=== PATIENT | female | born 1980 | race American Indian/Alaskan Native ===

== ENCOUNTER 2017-07-07 16:06 | Outpatient (CLI) | payer MEDICAID | END 2017-07-07 16:21 | disposition home or self-care (01) | LOC: LAB 16:06 → TRG 18:08 | PROVIDERS: ATTEND Obstetrics & Gynecology | DX: O09.523 Supervision of elderly multigravida, third trimester (principal); O36.0130 Maternal care for anti-D [Rh] antibodies, third trimester, not applicable or unspecified; Z3A.34 34 weeks gestation of pregnancy | CPT/HCPCS: 85461; 86850; 86900; 86901; 96372; J2790 ==

== ENCOUNTER 2017-07-31 10:10 | Outpatient (CLI) | payer MEDICAID ==
[2017-07-31 10:29] VITALS: BP 136/73
== END 2017-07-31 11:15 | disposition home or self-care (01) ==
LOC: TRG 10:10
PROVIDERS: ATTEND Obstetrics & Gynecology
DX: O09.523 Supervision of elderly multigravida, third trimester (principal); O47.1 False labor at or after 37 completed weeks of gestation; Z3A.39 39 weeks gestation of pregnancy
CPT/HCPCS: 59025

== ENCOUNTER 2017-07-31 21:42 | Inpatient (IN) | payer MEDICAID ==
[2017-07-31] MEDS ORDERED: XYLOCAINE 2% INFILTRATI ONE (22:36)
[2017-07-31] MEDS ORDERED: ePHEDrine SULFATE IV PRN (22:36)
[2017-07-31] MEDS ORDERED: BRETHINE IVP PRN (22:36)
[2017-07-31] MEDS ORDERED: BRETHINE SUB-Q PRN (22:36)
[2017-07-31] MEDS ORDERED: MINERAL OIL PO PRN (22:36)
[2017-07-31] MEDS ORDERED: SUBLIMAZE IV ONE (22:57)
--- NOTE | 2017-07-31 22:57 | History and Physical Report ---
History of Present Illness Date of examination: 07/31/17 Date of admission: 07/31/17 21:59 Chief complaint: contractions History of present illness: 37y/o @ 39+2 weeks presents in active labor with advanced cervical dilation. The patient initiated care @ 28 weeks ega. Her course is also complicated by advanced maternal age. She denied leakage of fluid at presentation. GBS negative. 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 Social history: - Obstetrical History Expected Date of Delivery: 08/05/17 Actual Gestation: 39 Week(s) 2 Day(s) : 7 Para: 4 Hx # Term Pregnancies: 4 Number of Pregnancies: 0 Spontaneous Abortions: 2 Induced : 0 Number of Living Children: 4 Medications and Allergies Allergies Allergy/AdvReac Type Severity Reaction Status Date / Time No Known Allergies Allergy Verified 07/31/17 10:12 Home Medications Medication Instructions Recorded Confirmed Last Taken Type No Known Home Medications [No 07/31/17 07/31/17 Unknown History Reported Home Medications] Active Meds: Active Medications Ephedrine Sulfate (Ephedrine Sulfate) 10 mg IV Q2M PRN PRN Reason: Hypotension Lactated Ringer's (Lactated Ringers) 1,000 mls @ 125 mls/hr IV DIRECT DINORAH Oxytocin/Sodium Chloride (Pitocin/Ns 20 Unit/1000ml Drip) 20 units in 1,000 mls @ 125 mls/hr IV DIRECT DINORAH Oxytocin/Sodium Chloride (Pitocin/Ns 30 Unit/500ml) 30 units in 500 mls @ 1 mls /hr IV TITR DINORAH; 1 MILLIUNITS/MIN PRN Reason: Protocol Lidocaine (Xylocaine 2%) 20 ml INFILTRATI ONCE ONE Stop: 07/31/17 22:37 Mineral Oil (Mineral Oil) 30 ml PO QHS PRN PRN Reason: Constipation Terbutaline Sulfate (Brethine) 0.25 mg SUB-Q ONCE PRN PRN Reason: Hyperstimulation/Hypertonicity Terbutaline Sulfate (Brethine) 0.25 mg IVP ONCE PRN PRN Reason: Hyperstimulation/Hypertonicity Review of Systems All systems: negative Genitourinary: contractions, no leakage of fluid - Vital Signs Vital signs: Vital Signs Pulse Pulse Ox 83 100 07/31/17 22:44 07/31/17 22:44 Temp Pulse Resp BP Pulse Ox 97.7 F 41 L 20 134/83 83 L 07/31/17 22:47 07/31/17 22:54 07/31/17 22:47 07/31/17 22:47 07/31/17 22:54 - Physical Exam Breasts: Positive: deferred Cardiovascular: Regular rate Lungs: Positive: Clear to auscultation Abdomen: Positive: normal appearance Genitourinary (Female): Positive: normal external genitalia Results All other labs normal. Assessment and Plan - Patient Problems (1) Active labor at term Current Visit: Yes Status: Acute Plan to address problem: admit to L&D (2) Advanced maternal age (AMA) in Current Visit: Yes Status: Acute
[2017-07-31] MEDS ORDERED: PITOCin/NS 30 UNIT/500ML 30 UNITS/500 ML BAG IV SCH (23:00)
[2017-07-31] MEDS ORDERED: LACTATED RINGERS 1,000 ML IV SCH (23:00)
[2017-07-31] MEDS ORDERED: PITOCin/NS 20 UNIT/1000ML DRIP 20,000 MILLIUNITS/1,000 ML BAG IV ONE (23:01)
[2017-07-31] MEDS ORDERED: TYLENOL PO PRN (23:02)
[2017-07-31] MEDS ORDERED: MILK OF MAGNESIA PO PRN (23:02)
[2017-07-31] MEDS ORDERED: LANSINOH TP PRN (23:02)
[2017-07-31] MEDS ORDERED: PHENERGAN PR PRN (23:02)
[2017-07-31] MEDS ORDERED: DULCOLAX PR PRN (23:02)
[2017-07-31] MEDS ORDERED: PHENERGAN PO PRN (23:02)
[2017-07-31] MEDS ORDERED: ZOFRAN IV PRN (23:02)
[2017-07-31] MEDS ORDERED: NORCO 5/325 PO PRN (23:02)
[2017-07-31] MEDS ORDERED: BENADRYL PO PRN (23:02)
[2017-07-31] MEDS ORDERED: TUCKS PAD TP PRN (23:02)
--- NOTE | 2017-07-31 23:04 | Procedure Note ---
OB Delivery Note - Delivery Date of Delivery: 08/01/17 Surgeon: NELIA SHARIF Estimated blood loss: 100cc - Vaginal Delivery presentation: vertex Delivery position: OA Intrapartum events: none Delivery augmentation: rupture of membranes Delivery monitor: external FHT Route of delivery: Delivery placenta: spontaneous Delivery cord: nuchal cord, 3 umbilical vessels Episiotomy: none Delivery laceration: 1st degree Anesthesia: none Delivery comments: Patient progressed to C/C/+1 and pushed to deliver a liveborn male with apgars of 8/9 and weight of 7lbs 7oz. After delivery of the head, a tight nuchal cord was surgically reduced. The shoulders delivered easily. The infant was placed on the warmer and bulb suctioned. The placenta delivered spontaneously intact with 3VC. The patient sustained a midline first degree laceration left unrepaired. EBL 100ml. - Infant A at 1 minute: 8 at 5 minutes: 9 Infant Gender: Male (weight 7lbs 7oz)
[2017-07-31 23:36] LABS: Hematocrit 38.2 % (30.3-42.9); Hemoglobin 12.6 gm/dl (10.1-14.3); Mean Corpuscular HGB Conc 33 % (30-34); Mean Corpuscular Volume 77 fl (79-97); Platelet Count 219 K/mm3 (140-440); Red Cell Distribution Width 15.4 % (13.2-15.2)
[2017-07-31 23:41] LABS: Mean Corpuscular Hemoglobin 25 pg (28-32)
[2017-07-31] MEDS ORDERED: SODIUM CHLORIDE FLUSH SYRINGE 10 ML IV NR (23:45)
[2017-08-01] MEDS: PITOCin/NS 20 UNIT/1000ML DRIP 20 UNITS/1,000 ML BAG IV SCH ×2 (00:37→03:58)
[2017-08-01] MEDS: MOTRIN PO SCH ×4 (04:11→23:25)
[2017-08-01 10:51] LABS: Hematocrit 35.5 % (30.3-42.9); Hemoglobin 11.6 gm/dl (10.1-14.3)
--- NOTE | 2017-08-01 12:47 | Progress Note ---
Assessment and Plan - Patient Problems (1) Active labor at term Current Visit: Yes Status: Acute Plan to address problem: Patient is doing well Discharge home tomorrow (2) Advanced maternal age (AMA) in Current Visit: Yes Status: Acute Subjective - Subjective Date of service: 08/01/17 Interval history: The patient is without any significant complaints. She reports minor uterine cramping. She states her lochia has decreased. She is tolerating a regular diet. Patient reports: appetite normal, voiding normally, pain well controlled [place]: doing well Objective - Vital Signs Latest vital signs: Vital Signs Temp Pulse Resp BP BP Pulse Ox 08/01/17 08:04 98.2 F 75 16 121/68 96 08/01/17 04:25 98.4 F 93 H 20 123/69 08/01/17 02:15 98.3 F 76 20 134/74 08/01/17 01:36 75 134/74 08/01/17 01:35 84 98 08/01/17 01:30 92 H 99 08/01/17 01:25 79 99 08/01/17 01:22 88 137/62 08/01/17 01:20 89 99 08/01/17 01:15 81 98 08/01/17 01:10 85 99 08/01/17 01:06 86 145/75 08/01/17 01:05 95 H 99 08/01/17 01:00 95 H 100 08/01/17 00:55 84 100 08/01/17 00:51 90 138/70 08/01/17 00:50 92 H 99 08/01/17 00:45 92 H 99 08/01/17 00:40 93 H 98 08/01/17 00:35 105 H 99 08/01/17 00:33 107 H 88 08/01/17 00:30 95 H 100 08/01/17 00:25 98 H 100 08/01/17 00:21 86 92 08/01/17 00:20 112 H 98 08/01/17 00:15 75 99 08/01/17 00:10 74 99 08/01/17 00:05 97 H 96 08/01/17 00:03 103 H 77 L 08/01/17 00:00 109 H 100 07/31/17 23:58 92 H 70 L 07/31/17 23:55 98 H 100 07/31/17 23:50 93 H 100 07/31/17 23:45 94 H 100 07/31/17 23:40 99 H 98 07/31/17 23:35 92 H 98 07/31/17 23:30 83 98 07/31/17 23:24 80 100 07/31/17 23:19 83 98 07/31/17 23:18 89 88 07/31/17 23:14 88 99 07/31/17 23:09 84 98 07/31/17 23:07 89 90 07/31/17 23:04 82 100 07/31/17 22:59 78 100 07/31/17 22:54 41 L 83 L 07/31/17 22:49 85 100 07/31/17 22:47 97.7 F 81 20 134/83 07/31/17 22:44 83 100 Intake and Output 07/31/17 08/01/17 08/01/17 22:59 06:59 14:59 Intake Total 618.75 220 Output Total 400 Balance 218.75 220 Intake: IV 418.75 PITOCin/NS 20 UNIT/1000ML 418.75 DRIP 20 units In 1,000 ml @ 125 mls/hr IV DIRECT DINORAH Rx#:[id number] Oral 200 220 Output: Urine 400 Void 400 Other: Total, Intake Amount 200 220 Total, Output Amount 400 # Voids Void 1 Weight 107.501 kg 107.501 kg Estimated Blood Loss 100 Patient Weight 08/02/17 06:59 Weight 107.501 kg - Exam Uterus: Present: normal, firm - Labs Labs: Abnormal lab results 07/31/17 Range/Units 22:20 WBC 13.8 H (4.5-11.0) K/mm3 MCV 77 L (79-97) fl MCH 25 L (28-32) pg RDW 15.4 H (13.2-15.2) %
--- NOTE | 2017-08-01 12:48 | Discharge Summary ---
Providers - Providers Date of Admission: 07/31/17 21:59 Date of discharge: 08/02/17 Attending physician: NELIA SHARIF Primary care physician: NELIA SHARIF Hospitalization Reason for admission: active labor Delivery: Laceration: 1st degree Discharge diagnosis: IUP at term delivered [place] baby: male Hospital course: The patient presented to labor and delivery in active labor with advanced cervical dilatation. She had a normal spontaneous vaginal delivery. course was uncomplicated. Condition at discharge: Good Disposition: DC-01 TO HOME OR SELFCARE - Discharge Diagnoses (1) Active labor at term Status: Acute (2) Advanced maternal age (AMA) in Status: Acute Plan - Discharge Medications Prescriptions: HYDROcodone/APAP 5-325 [[place] 5/325] 1 each PO Q6HR PRN #30 tablet PRN Reason: Pain Ibuprofen [Motrin] 800 mg PO Q8HR PRN #60 tablet PRN Reason: Pain - Provider Discharge Summary Activity: no sex for 6 weeks, no heavy lifting 4 weeks, no strenuous exercise Diet: routine Instructions: routine Additional instructions: [] Smoking cessation referral if applicable(refer to patient education folder for contact #) [] Refer to [facility] Booklet Call your doctor immediately for: * Fever > 100.5 * Heavy vaginal bleeding ( >1 pad per hour) * Severe persistent headache * Shortness of breath * Reddened, hot, painful area to leg or breast * Follow-up in 4 weeks for visit - Follow up plan
[2017-08-02] MEDS: MOTRIN PO SCH ×3 (05:21→17:31)
[2017-08-02 17:59] VITALS: BP 123/63
== END 2017-08-02 17:50 | disposition home or self-care (01) | DRG 775 ==
LOC: TRG 21:42 → OBSVTOIN 21:59 → LD 21:59 → TRG 21:59 → OB 08-01 02:13
PROVIDERS: ADMIT Obstetrics & Gynecology; ATTEND Obstetrics & Gynecology
PROC: 10E0XZZ Delivery of Products of Conception, External Approach (ICD-10-PCS; principal; 2017-08-01)
DX: O69.81X0 Labor and delivery complicated by cord around neck, without compression, not applicable or unspecified (principal); O62.0 Primary inadequate contractions; O70.0 First degree perineal laceration during delivery; Z3A.39 39 weeks gestation of pregnancy; Z37.0 Single live birth
CPT/HCPCS: 36415; 85014; 85018; 85027; 86592; 86706; 86850; 86870; 86900; 86901; 99211; A6250; G0463; J2590; J3010

== ENCOUNTER 2018-12-06 07:40 | Outpatient (CLI) | payer OTHER ==
[2018-12-06] MEDS ORDERED: BRETHINE ONE (07:47)
[2018-12-06] MEDS ORDERED: LACTATED RINGERS 1,000 ML ONE (07:47)
[2018-12-06] MEDS ORDERED: BICITRA ONE (07:50)
[2018-12-06] MEDS ORDERED: PEPCID IV ONE (07:51)
[2018-12-06] MEDS ORDERED: REGLAN ONE (07:51)
[2018-12-06 08:06] VITALS: BP 142/72
[2018-12-06 08:50] LABS: Hematocrit 35.8 % (30.3-42.9); Hemoglobin 12.1 gm/dl (10.1-14.3); Mean Corpuscular HGB Conc 34 % (30-34); Mean Corpuscular Volume 77 fl (79-97); Platelet Count 246 K/mm3 (140-440); Red Blood Count 4.67 M/mm3 (3.65-5.03); Red Cell Distribution Width 14.4 % (13.2-15.2)
[2018-12-06] MEDS ORDERED: STADOL IV ONE (09:30)
[2018-12-06] MEDS ORDERED: D5LR 1,000 ML IV ONE (09:49)
--- NOTE | 2018-12-06 12:16 | History and Physical Report ---
History of Present Illness Date of examination: 12/06/18 Date of admission: 12/06/2018 Chief complaint: breech presentation History of present illness: 38y/o @ 38+6 weeks presents for an external cephalic version secondary to fetus being in breech presentation. The patient denies any regular uterine contractions vaginal bleeding or leakage of fluid. Her course is complicated by advanced maternal age, multiparity, and unstable lie. Past History Past Medical History: other (breast mass) Past Surgical History: no surgical history Social history: - Obstetrical History Expected Date of Delivery: 12/14/18 Actual Gestation: 38 Week(s) 6 Day(s) : 8 Para: 5 Hx # Term Pregnancies: 5 Number of Pregnancies: 0 Spontaneous Abortions: 2 Induced : 0 Number of Living Children: 5 Medications and Allergies Allergies Allergy/AdvReac Type Severity Reaction Status Date / Time No Known Allergies Allergy Verified 07/31/17 10:12 Home Medications Medication Instructions Recorded Confirmed Last Taken Type HYDROcodone/APAP 5-325 [[place] 1 each PO Q6HR PRN #30 tablet 08/01/17 12/06/18 Unknown Rx 5/325] Ibuprofen [Motrin] 800 mg PO Q8HR PRN #60 tablet 08/01/17 12/06/18 Unknown Rx Review of Systems All systems: negative - Vital Signs Vital signs: Vital Signs Pulse BP 90 142/72 12/06/18 08:05 12/06/18 08:05 Temp Pulse Resp BP Pulse Ox 97.6 F 103 H 14 142/72 99 12/06/18 08:24 12/06/18 12:08 12/06/18 08:24 12/06/18 08:05 12/06/18 12:08 - Physical Exam Breasts: Positive: deferred Cardiovascular: Regular rate Lungs: Positive: Clear to auscultation Results Result Diagrams: 12/06/18 08:10 Abnormal lab results 12/06/18 Range/Units 08:10 MCV 77 L (79-97) fl MCH 26 L (28-32) pg All other labs normal. Assessment and Plan - Patient Problems (1) Breech presentation of fetus Current Visit: Yes Status: Acute Plan to address problem: Admit for external cephalic version (2) Advanced maternal age (AMA) in Current Visit: No Status: Acute
--- NOTE | 2018-12-06 21:15 | Operative Report ---
Operative Report Operative Report: Date: 12/06/2018 Preoperative diagnosis: Breech presentation
== END 2018-12-06 14:15 | disposition home or self-care (01) ==
LOC: TRG 07:40 → LD 07:42 → TRG 14:15
PROVIDERS: ATTEND Obstetrics & Gynecology
DX: O32.1XX0 Maternal care for breech presentation, not applicable or unspecified (principal); O47.03 False labor before 37 completed weeks of gestation, third trimester; O09.523 Supervision of elderly multigravida, third trimester; Z3A.38 38 weeks gestation of pregnancy
CPT/HCPCS: 36415; 59025; 85027; 86850; 86900; 86901; 96365; 96375; J0595; J3105; J7120; J7121; 96361; J2765

== ENCOUNTER 2018-12-22 20:57 | Inpatient (IN) | payer OTHER ==
[2018-12-22] MEDS ORDERED: BRETHINE SUB-Q PRN (23:45)
[2018-12-22] MEDS ORDERED: PHENERGAN PR PRN (23:45)
[2018-12-22] MEDS ORDERED: PITOCin/NS 30 UNIT/500ML 30 UNITS/500 ML BAG IV SCH (23:45)
[2018-12-22] MEDS ORDERED: PITOCin/NS 20 UNIT/1000ML DRIP 20 UNITS/1,000 ML BAG IV SCH (23:45)
[2018-12-22] MEDS ORDERED: CERVIDIL VG ONE (23:45)
[2018-12-22] MEDS ORDERED: NARCAN 0.4 MG/1 ML IV PRN (23:45)
[2018-12-22] MEDS ORDERED: STADOL IV PRN (23:45)
[2018-12-22] MEDS ORDERED: LACTATED RINGERS 1,000 ML IV SCH (23:45)
[2018-12-22] MEDS ORDERED: SUBLIMAZE IV PRN (23:45)
[2018-12-22] MEDS ORDERED: ZOFRAN IV PRN (23:45)
[2018-12-22] MEDS ORDERED: XYLOCAINE 2% INFILTRATI ONE (23:45)
[2018-12-22] MEDS ORDERED: MINERAL OIL PO PRN (23:45)
[2018-12-22] MEDS ORDERED: BRETHINE IVP PRN (23:45)
--- NOTE | 2018-12-22 23:51 | History and Physical Report ---
History of Present Illness Date of examination: 12/22/18 Date of admission: 12/22/18 21:03 Chief complaint: IOL for post dates History of present illness: This is a 38 yo at 41 weeks here for IOL for post dates. She reports no medical problems in this besides the breech and had endured a version in this . She is a patient of [facility]. She is GBS neg Past History Past Medical History: no pertinent history Past Surgical History: no surgical history Family/Genetic History: none Social history: . denies: smoking, alcohol abuse, prescription drug abuse - Obstetrical History : 8 Medications and Allergies Allergies Allergy/AdvReac Type Severity Reaction Status Date / Time No Known Allergies Allergy Verified 07/31/17 10:12 Home Medications Medication Instructions Recorded Confirmed Last Taken Type HYDROcodone/APAP 5-325 [[place] 1 each PO Q6HR PRN #30 tablet 08/01/17 12/06/18 Unknown Rx 5/325] Ibuprofen [Motrin] 800 mg PO Q8HR PRN #60 tablet 08/01/17 12/06/18 Unknown Rx Review of Systems All systems: negative - Vital Signs Vital signs: Vital Signs Pulse BP 84 129/69 12/22/18 21:51 12/22/18 21:51 Temp Pulse Resp BP Pulse Ox 97.5 F L 83 18 137/82 12/22/18 22:08 12/22/18 23:08 12/22/18 22:08 12/22/18 23:08 - Physical Exam Breasts: Positive: normal Cardiovascular: Regular rate, Normal S1 Lungs: Positive: Clear to auscultation, Normal air movement Abdomen: Positive: normal appearance, soft, normal bowel sounds. Negative: distention, tenderness, guarding Genitourinary (Female): Positive: normal external genitalia, normal perenium Vagina: Positive: normal moisture Uterus: Positive: normal size Anus/Rectum: Positive: normal perianal skin Extremities: Positive: normal Deep Tendon Reflex Grade: Normal +2 - Obstetrical FHR: category 1 Cervical Dilatation: 1 Cervical Effacement Percentage: 50 station: -3 Uterine Tone Measurement Phase: Resting Results All other labs normal. Assessment and Plan A/P IUP 41 weeks IOL for post dates GBS neg start with cervidil expect vaginal delivery
[2018-12-23 00:47] LABS: Hematocrit 33.4 % (30.3-42.9); Hemoglobin 11.2 gm/dl (10.1-14.3); Mean Corpuscular HGB Conc 34 % (30-34); Mean Corpuscular Volume 76 fl (79-97); Platelet Count 256 K/mm3 (140-440); Red Blood Count 4.39 M/mm3 (3.65-5.03); Red Cell Distribution Width 14.7 % (13.2-15.2)
--- NOTE | 2018-12-23 10:20 | Progress Note ---
Assessment and Plan A/P IUP 41 weeks IOL for post dates GBS neg s/p cervidil will proceed with pitocin this am with expectation of vaginal delivery Subjective - Subjective Date of service: 12/23/18 Principal diagnosis: ILO for post dates Interval history: This is a 38 yo at 41 weeks here for IOL for post dates. She reports no medical problems in this besides the breech and had endured a version in this . She is a patient of [facility]. She is GBS neg Patient reports: movement normal, contractions, no new complaints, no loss of fluid, no vaginal bleeding Objective - Vital Signs Vital Signs: Vital Signs - 12hr 12/22/18 12/23/18 12/23/18 23:08 00:08 00:53 Temperature Pulse Rate 83 74 68 Blood Pressure 137/82 130/76 121/78 12/23/18 12/23/18 12/23/18 01:08 02:08 03:08 Temperature Pulse Rate 72 74 75 Blood Pressure 128/79 123/77 115/67 12/23/18 12/23/18 12/23/18 04:08 05:08 06:08 Temperature Pulse Rate 72 84 75 Blood Pressure 108/66 113/74 118/70 12/23/18 12/23/18 07:09 07:12 Temperature 98.2 F Pulse Rate 73 Blood Pressure 118/73 - Exam Breasts: normal Cardiovascular: Regular rate, Normal S1 Lungs: Clear to auscultation, Normal air movement Abdomen: Present: normal appearance, soft, normal bowel sounds. Absent: distention, tenderness, guarding Uterus: Present: normal, firm, fundal height above umbilicus. Absent: bogginess, tenderness FHR: category 1 Cervical Dilatation: 4 Cervical Effacement Percentage: 80 station: -2 Uterine Contraction Pattern: Regular Uterine Tone Measurement Phase: Contraction Uterine Contraction Intensity: Mild Extremities: normal Deep Tendon Reflex Grade: Normal +2 - Labs Labs: Abnormal Labs 12/23/18 00:11 WBC 11.8 H MCV 76 L MCH 26 L Laboratory Results - last 24 hr 12/23/18 12/23/18 00:11 00:16 WBC 11.8 H RBC 4.39 Hgb 11.2 Hct 33.4 MCV 76 L MCH 26 L MCHC 34 RDW 14.7 Plt Count 256 Blood Type B NEGATIVE Antibody Screen Negative
[2018-12-23] MEDS ORDERED: CYTOTEC ONE (14:11)
[2018-12-23] MEDS ORDERED: MILK OF MAGNESIA PO PRN (14:15)
[2018-12-23] MEDS ORDERED: BENADRYL PO PRN (14:15)
[2018-12-23] MEDS ORDERED: LANSINOH TP PRN (14:15)
[2018-12-23] MEDS ORDERED: NORCO 5/325 PO PRN (14:15)
[2018-12-23] MEDS ORDERED: ANUCORT-HC PR PRN (14:15)
[2018-12-23] MEDS ORDERED: TYLENOL PO PRN (14:15)
[2018-12-23] MEDS ORDERED: TUCKS PAD TP PRN (14:15)
[2018-12-23] MEDS ORDERED: PHENERGAN PR PRN (14:15)
[2018-12-23] MEDS ORDERED: DULCOLAX PR PRN (14:15)
[2018-12-23] MEDS ORDERED: ZOFRAN IV PRN (14:15)
[2018-12-23] MEDS ORDERED: PERCOCET 5/325 PO PRN (14:15)
[2018-12-23] MEDS ORDERED: TORADOL IV PRN (14:15)
[2018-12-23] MEDS ORDERED: PHENERGAN PO PRN (14:15)
--- NOTE | 2018-12-23 14:20 | Procedure Note ---
OB Delivery Note - Delivery Date of Delivery: 12/23/18 Surgeon: MARK FOURNIER Estimated blood loss: other (150cc) - Vaginal Delivery presentation: vertex Delivery position: OA Delivery induction: oxytocin Delivery monitor: external FHT, external uterine Route of delivery: Delivery placenta: spontaneous Delivery cord: 3 umbilical vessels Episiotomy: none Delivery laceration: none Anesthesia: none Delivery comments: Patient was noted to be c/c +1 and commenced to pushing a viable female at 1402. The nasopharynx and oropharynx suctioned. The cord was clamped and cut and placed on mom chest. The Apgars noted at 8 and 9. Weight of female infant 7 pounds 0 oz. Survey of perineum did not reveal any lacerations. The placenta delivered intact with three vessel cord. Bleeding was noted to be 150cc. Patient tolerated procedure well. - A at 1 minute: 8 at 5 minutes: 9 Infant Gender: Female
[2018-12-23] MEDS: IBUPROFEN PO SCH ×2 (14:55→22:54)
[2018-12-23] MEDS ORDERED: SODIUM CHLORIDE FLUSH SYRINGE 10 ML IV NR (15:00)
[2018-12-23] MEDS ORDERED: CYTOTEC PR ONE (15:00)
[2018-12-23] MEDS ORDERED: PITOCin/NS 20 UNIT/1000ML DRIP 20 UNITS/1,000 ML BAG IV SCH (15:00)
[2018-12-23] MEDS: COLACE PO SCH (22:54)
[2018-12-24 02:35] LABS: Hematocrit 32.9 % (30.3-42.9)
[2018-12-24] MEDS: SENOKOT S PO SCH (04:08)
[2018-12-24] MEDS: IBUPROFEN PO SCH ×3 (04:08→22:24)
--- NOTE | 2018-12-24 07:00 | Progress Note ---
Assessment and Plan A/P PPD 1 s/p Routine care. d/c home tomorrow rh neg will need rhogam prior to discharge Subjective - Subjective Date of service: 12/24/18 Principal diagnosis: ILO for post dates Interval history: This is a 38 yo at 41 weeks here for IOL for post dates. She reports no medical problems in this besides the breech and had endured a version in this . She is a patient of [facility]. She is GBS neg Patient reports: appetite normal, voiding normally, pain well controlled, flatus, ambulating normally [place]: doing well Objective - Vital Signs Latest vital signs: Vital Signs Temp Pulse Resp BP BP Pulse Ox 12/24/18 05:08 18 12/24/18 04:08 18 12/24/18 00:19 98.7 F 85 18 122/63 98 12/23/18 23:54 18 12/23/18 22:54 18 12/23/18 20:47 98.9 F 84 18 123/73 96 12/23/18 16:06 98 F 73 18 135/74 100 12/23/18 15:20 78 136/78 12/23/18 14:55 18 12/23/18 14:48 82 127/67 12/23/18 14:33 82 128/63 12/23/18 14:18 92 H 134/64 12/23/18 13:48 83 137/68 12/23/18 13:17 85 137/66 12/23/18 12:48 88 139/69 12/23/18 12:17 89 141/72 12/23/18 11:58 20 12/23/18 07:12 98.2 F 12/23/18 07:09 73 118/73 Intake and Output 12/23/18 12/23/18 12/24/18 15:59 23:59 07:59 Intake Total 16.667 360 240 Balance 16.667 360 240 Intake: IV 16.667 PITOCin/NS 30 UNIT/500ML 16.667 30 units In 500 ml @ 1 MILLIUNITS/MIN 1 mls/hr IV TITR DINORAH Rx#:[id number] Oral 360 Intake, Free Water 240 Other: Total, Intake Amount 360 # Voids Void 1 1 # Bowel Movements 1 Estimated Blood Loss 150 - Exam Breasts: Present: normal Cardiovascular: Present: Regular rate, Normal S1 Lungs: Present: Clear to auscultation, Normal air movement Abdomen: Present: normal appearance, soft, normal bowel sounds. Absent: distention, tenderness, guarding Vulva: both: normal Uterus: Present: normal, firm, fundal height below umbilicus. Absent: bogginess, tenderness Extremities: Present: normal Deep Tendon Reflex Grade: Normal +2 Incision: Present: normal, dry
[2018-12-24] MEDS: COLACE PO SCH ×2 (10:00→22:24)
[2018-12-24] MEDS: PRENATAL VITAMIN PO SCH (10:20)
[2018-12-24] MEDS ORDERED: M-M-R II VACCINE SUB-Q ONE (14:15)
[2018-12-24] MEDS ORDERED: BOOSTRIX IM ONE (14:15)
[2018-12-25] MEDS: SENOKOT S PO SCH (02:13)
[2018-12-25] MEDS: IBUPROFEN PO SCH ×2 (02:14→09:22)
--- NOTE | 2018-12-25 09:07 | Progress Note ---
Assessment and Plan A/P PPD 2 s/p Routine care. d/c home today rh neg will need rhogam prior to discharge Subjective - Subjective Date of service: 12/25/18 Principal diagnosis: IOL for post dates Interval history: This is a 38 yo at 41 weeks here for IOL for post dates. She reports no medical problems in this besides the breech and had endured a version in this . [facility] She is GBS neg Patient reports: appetite normal, voiding normally, pain well controlled : doing well Objective - Vital Signs Latest vital signs: Vital Signs Temp Pulse Resp BP Pulse Ox 12/25/18 03:14 18 12/25/18 02:14 18 12/25/18 00:42 98.0 F 78 20 121/73 97 12/24/18 23:24 18 12/24/18 22:24 18 12/24/18 16:10 98.7 F 81 20 124/84 99 12/24/18 13:16 98.4 F 86 20 129/68 98 Intake and Output 12/24/18 12/25/18 12/25/18 23:59 07:59 15:59 Intake Total 720 Balance 720 Intake: Oral 720 Other: Total, Intake Amount 480 # Voids Void 1 - Exam Breasts: Present: normal Cardiovascular: Present: Regular rate, Normal S1 Lungs: Present: Clear to auscultation, Normal air movement Abdomen: Present: normal appearance, soft, normal bowel sounds. Absent: distention, tenderness, guarding Vulva: both: normal Uterus: Present: normal, firm, fundal height below umbilicus. Absent: bogginess, tenderness Extremities: Present: normal Deep Tendon Reflex Grade: Normal +2 Incision: Present: normal, dry, intact
--- NOTE | 2018-12-25 09:12 | Discharge Summary ---
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 . female. Routine PP at 4 weeks . Social servic consult for homelessness Condition at discharge: Good Disposition: DC-01 TO HOME OR SELFCARE Plan - Discharge Medications Prescriptions: Ferrous Sulfate [Feosol 325 MG tab] 325 mg PO BID #30 tablet Ibuprofen [Motrin] 600 mg PO Q8H PRN #30 tablet PRN Reason: Pain oxyCODONE /ACETAMINOPHEN [Percocet 5/325] 1 tab PO Q6HR PRN #20 tablet PRN Reason: Pain - Provider Discharge Summary Additional instructions: [] Smoking cessation referral if applicable(refer to patient education folder for contact #) [] Refer to [facility] Booklet Call your doctor immediately for: * Fever > 100.5 * Heavy vaginal bleeding ( >1 pad per hour) * Severe persistent headache * Shortness of breath * Reddened, hot, painful area to leg or breast * Drainage or odor from incision. * Keep incision clean and dry at all times and follow doctor's instructions regarding bathing/showering - Follow up plan Follow up: MARK FOURNIER MD [Primary Care Provider] - 7 Days
[2018-12-25] MEDS: COLACE PO SCH (09:24)
[2018-12-25] MEDS: PRENATAL VITAMIN PO SCH (09:24)
[2018-12-25 17:18] VITALS: BP 122/87
== END 2018-12-25 18:00 | disposition home or self-care (01) | DRG 775 ==
LOC: TRG 20:57 → LD 21:03 → OB 12-23 15:42
PROVIDERS: ADMIT Obstetrics & Gynecology; ATTEND Obstetrics & Gynecology
PROC: 10E0XZZ Delivery of Products of Conception, External Approach (ICD-10-PCS; principal; 2018-12-23)
PROC: 3E033VJ Introduction of Other Hormone into Peripheral Vein, Percutaneous Approach (ICD-10-PCS; 2018-12-23)
DX: O48.0 Post-term pregnancy (principal); Z3A.41 41 weeks gestation of pregnancy; Z37.0 Single live birth; O26.893 Other specified pregnancy related conditions, third trimester; Z67.21 Type B blood, Rh negative
CPT/HCPCS: 36415; 59200; 85014; 85018; 85027; 86592; 86850; 86900; 86901; G0378; J0595; J2590; J7120